=== PATIENT | male | born 1985 | race Caucasian/White ===

== ENCOUNTER 2024-07-11 21:41 | Emergency (ER) | payer BC, OTHER ==
[2024-07-11 22:43] LABS: Bacteria/HPF None Seen HPF (None Seen); Bilirubin Negative (Negative); Blood, Urine Negative (Negative); CAUTI Indications for Culture Fever or rigors; Clarity Turbid (Clear); Glucose, Urine (Dipstick) Normal (Negative); Ketone, Urine Trace mg/dL (Negative); Leukocyte Negative Leu/uL (Negative); Nitrite Negative (Negative); Protein, Urine (Dipstick) 70 mg/dL (Neg-Trace); RBC/HPF 0-3 HPF (0-3); Specific Gravity, Urine 1.042 (1.002-1.036); Squamous Epithelial 0-3 HPF (0-3); Urobilinogen Normal mg/dL (Less than 2); WBC/HPF 0-3 HPF (0-3)
[2024-07-11 22:44] LABS: Urine Culture Reflex No No
[2024-07-11 22:49] LABS: #Basophils Less than 0.03 10x3/uL (0.0-0.2); #Eosinophils Less than 0.03 10x3/uL (0.0-0.7); %Basophils 0.2 % (0.0-1.0); %Lymphocytes 8.4 % (21.0-51.0); %Monocytes 7.9 % (0.0-10.0); %Neutrophils 83.1 % (42.0-75.0); Hematocrit 40.8 % (42.0-52.0); Hemoglobin 14.3 g/dL (14.0-18.0); Mean Corpuscular Hemoglobin 29.5 pg (27.0-31.0); Mean Corpuscular Volume 84.3 fL (78.0-98.0); Mean Platelet Volume 9.6 fL (7.4-10.4); Platelet Count 237 10x3/uL (130-400); RBC Distribution Width 12.5 % (11.5-14.5); Red Blood Cell (RBC) Count 4.84 mill/uL (4.70-6.10)
[2024-07-11 23:09] LABS: ALT (SGPT) 14 U/L (Less than 45); AST (SGOT) 25 U/L (11-34); Alkaline Phosphatase 38 U/L (40-110); Anion Gap 12 mmol/L (10-20); BUN (Urea Nitrogen) 15 mg/dL (8.9-20.6); Calc. Creatinine Clearance 0 mL/min (70-130); Calcium 8.5 mg/dL (7.8-10.44); Carbon Dioxide 27 mmol/L (22-29); Chloride 103 mmol/L (98-107); Estimated GFR 72; Globulin 3.6 g/dL (2.4-3.5); Glucose 117 mg/dL (70-105); Potassium 3.6 mmol/L (3.5-5.1); Protein, Total 7.6 g/dL (6.0-8.3); Sodium 138 mmol/L (136-145)
[2024-07-11] MEDS ORDERED: Ketorolac Tromethamine 30 MG (1 mL) VIAL ONE ×2 (23:54→23:58)
[2024-07-11] MEDS ORDERED: Ondansetron PF 4 MG/2 ML Vial ONE (23:54)
== END 2024-07-12 02:40 | disposition home or self-care (01) ==
LOC: ERS 21:41
DX: E86.0 Dehydration (principal); B34.9 Viral infection, unspecified
CPT/HCPCS: 80053; 81001; 85025; 87428; 93005; 96374; 96375; J1885; J2405

== ENCOUNTER 2025-01-28 08:10 | Outpatient (CLI) | payer OTHER | END 2025-01-28 08:11 | disposition home or self-care (01) | LOC: SCSMRI 08:10 | PROVIDERS: ATTEND Family Medicine | DX: M25.511 Pain in right shoulder (principal) ==